=== PATIENT | male | born 1960 | race Caucasian/White ===

== ENCOUNTER 2019-02-13 23:46 | Emergency (ER) | payer SELFPAY ==
[~2019-02-13] VITALS: Ht 180.3 cm; Wt 93.7 kg
[2019-02-14] VITALS: BP 137/89
[2019-02-14] MEDS ORDERED: DOXYCYCLINE 100MG CAPSULE PO STA (01:08)
[2019-02-14] MEDS ORDERED: DOXY100C43 PO (01:09)
[2019-02-14] MEDS ORDERED: TETanus/Pertussis (Acell)/Diphther VAC/PF (Tdap-Adult) 0.5ml syringe IM ONE (01:10)
== END 2019-02-14 01:30 | disposition home or self-care (01) ==
LOC: ER 23:46
DX: S30.860A Insect bite (nonvenomous) of lower back and pelvis, initial encounter (principal); Z79.899 Other long term (current) drug therapy; W57.XXXA Bitten or stung by nonvenomous insect and other nonvenomous arthropods, initial encounter; Y93.89 Activity, other specified; Y92.89 Other specified places as the place of occurrence of the external cause; Y99.8 Other external cause status
CPT/HCPCS: 10120; 90471; 90715; 99284